=== PATIENT | male | born 1955 | race Caucasian/White ===

== ENCOUNTER 2024-02-19 08:46 | Outpatient (CLI) | payer MEDICARE, BC, SELFPAY | END 2024-02-19 08:47 | disposition home or self-care (01) | LOC: WOUND 08:49 | PROVIDERS: Visit Provider Surgery | DX: S81.811A Laceration without foreign body, right lower leg, initial encounter (principal); S81.801A Unspecified open wound, right lower leg, initial encounter; W19.XXXA Unspecified fall, initial encounter; Y92.015 Private garage of single-family (private) house as the place of occurrence of the external cause; I73.9 Peripheral vascular disease, unspecified; E11.9 Type 2 diabetes mellitus without complications; Z94.4 Liver transplant status; Z79.52 Long term (current) use of systemic steroids; Z79.84 Long term (current) use of oral hypoglycemic drugs | CPT/HCPCS: 97597; G0463 ==

== ENCOUNTER 2024-02-26 09:47 | Outpatient (CLI) | payer MEDICARE, BC, SELFPAY | END 2024-02-26 09:48 | disposition home or self-care (01) | LOC: WOUND 09:47 | PROVIDERS: Visit Provider Surgery | DX: S81.801A Unspecified open wound, right lower leg, initial encounter (principal); E11.9 Type 2 diabetes mellitus without complications; Z94.4 Liver transplant status; Z79.52 Long term (current) use of systemic steroids | CPT/HCPCS: 97597 ==

== ENCOUNTER 2024-03-04 09:41 | Outpatient (CLI) | payer MEDICARE, BC, SELFPAY | END 2024-03-04 09:42 | disposition home or self-care (01) | LOC: WOUND 09:41 | PROVIDERS: Visit Provider Surgery | DX: S81.801A Unspecified open wound, right lower leg, initial encounter (principal); I73.9 Peripheral vascular disease, unspecified; E11.9 Type 2 diabetes mellitus without complications | CPT/HCPCS: 11042 ==

== ENCOUNTER 2024-03-11 09:49 | Outpatient (CLI) | payer MEDICARE, BC, SELFPAY | END 2024-03-11 09:50 | disposition home or self-care (01) | LOC: WOUND 09:49 | PROVIDERS: Visit Provider Nurse Practitioner Family | DX: S81.801A Unspecified open wound, right lower leg, initial encounter (principal); S81.811A Laceration without foreign body, right lower leg, initial encounter; E11.9 Type 2 diabetes mellitus without complications; Z79.84 Long term (current) use of oral hypoglycemic drugs | CPT/HCPCS: 11042; 97597 ==

== ENCOUNTER 2024-03-18 09:38 | Outpatient (CLI) | payer MEDICARE, BC, SELFPAY | END 2024-03-18 09:39 | disposition home or self-care (01) | LOC: WOUND 09:38 | PROVIDERS: Visit Provider Nurse Practitioner Family | DX: I87.2 Venous insufficiency (chronic) (peripheral) (principal); I73.9 Peripheral vascular disease, unspecified; L97.812 Non-pressure chronic ulcer of other part of right lower leg with fat layer exposed; L97.212 Non-pressure chronic ulcer of right calf with fat layer exposed; Z94.4 Liver transplant status; Z79.52 Long term (current) use of systemic steroids | CPT/HCPCS: 11042; 11043; G0463 ==

== ENCOUNTER 2024-03-25 09:44 | Outpatient (CLI) | payer MEDICARE, BC, SELFPAY | END 2024-03-25 09:45 | disposition home or self-care (01) | LOC: WOUND 09:44 | PROVIDERS: Visit Provider Nurse Practitioner Family | DX: I87.2 Venous insufficiency (chronic) (peripheral) (principal); I73.9 Peripheral vascular disease, unspecified; L97.812 Non-pressure chronic ulcer of other part of right lower leg with fat layer exposed; E11.9 Type 2 diabetes mellitus without complications; Z79.84 Long term (current) use of oral hypoglycemic drugs | CPT/HCPCS: 11042 ==

== ENCOUNTER 2024-04-01 09:46 | Outpatient (CLI) | payer MEDICARE, BC, SELFPAY | END 2024-04-01 09:47 | disposition home or self-care (01) | LOC: WOUND 09:47 | PROVIDERS: Visit Provider Nurse Practitioner Family | DX: I87.2 Venous insufficiency (chronic) (peripheral) (principal); I73.9 Peripheral vascular disease, unspecified; L97.812 Non-pressure chronic ulcer of other part of right lower leg with fat layer exposed; E11.9 Type 2 diabetes mellitus without complications; Z79.84 Long term (current) use of oral hypoglycemic drugs | CPT/HCPCS: 11042 ==

== ENCOUNTER 2024-04-15 09:50 | Outpatient (CLI) | payer MEDICARE, BC, SELFPAY | END 2024-04-15 09:51 | disposition home or self-care (01) | LOC: WOUND 09:50 | PROVIDERS: Visit Provider Nurse Practitioner Family | DX: I87.2 Venous insufficiency (chronic) (peripheral) (principal); I73.9 Peripheral vascular disease, unspecified; L97.812 Non-pressure chronic ulcer of other part of right lower leg with fat layer exposed; E11.9 Type 2 diabetes mellitus without complications; Z79.84 Long term (current) use of oral hypoglycemic drugs | CPT/HCPCS: 11042 ==

== ENCOUNTER 2024-04-23 07:52 | Outpatient (CLI) | payer MEDICARE, BC, SELFPAY | END 2024-04-23 07:53 | disposition home or self-care (01) | LOC: WOUND 07:52 | PROVIDERS: Visit Provider Nurse Practitioner Family | DX: I87.2 Venous insufficiency (chronic) (peripheral) (principal); I73.9 Peripheral vascular disease, unspecified; L97.818 Non-pressure chronic ulcer of other part of right lower leg with other specified severity; E11.9 Type 2 diabetes mellitus without complications; Z94.4 Liver transplant status; Z79.52 Long term (current) use of systemic steroids; Z79.84 Long term (current) use of oral hypoglycemic drugs | CPT/HCPCS: G0463 ==

== ENCOUNTER 2024-04-30 10:03 | Outpatient (CLI) | payer MEDICARE, BC, SELFPAY | END 2024-04-30 10:04 | disposition home or self-care (01) | PROVIDERS: Visit Provider Nurse Practitioner Family | DX: I73.9 Peripheral vascular disease, unspecified (principal); I87.2 Venous insufficiency (chronic) (peripheral); E11.9 Type 2 diabetes mellitus without complications; Z94.4 Liver transplant status; Z79.52 Long term (current) use of systemic steroids; Z79.84 Long term (current) use of oral hypoglycemic drugs | CPT/HCPCS: G0463 ==

== ENCOUNTER 2025-01-22 13:22 | Outpatient (CLI) | payer MEDICARE, BC, SELFPAY | END 2025-01-22 13:23 | disposition home or self-care (01) | LOC: WOUND 13:25 | PROVIDERS: Visit Provider Nurse Practitioner Family | DX: E11.622 Type 2 diabetes mellitus with other skin ulcer (principal); I73.9 Peripheral vascular disease, unspecified; L97.811 Non-pressure chronic ulcer of other part of right lower leg limited to breakdown of skin; Z94.4 Liver transplant status; Z79.84 Long term (current) use of oral hypoglycemic drugs | CPT/HCPCS: G0463 ==

== ENCOUNTER 2025-01-29 14:15 | Outpatient (CLI) | payer MEDICARE, BC, SELFPAY | END 2025-01-29 14:16 | disposition home or self-care (01) | LOC: WOUND 14:16 | PROVIDERS: Visit Provider Family Medicine | DX: I73.9 Peripheral vascular disease, unspecified (principal); E11.622 Type 2 diabetes mellitus with other skin ulcer; L97.811 Non-pressure chronic ulcer of other part of right lower leg limited to breakdown of skin; Z94.4 Liver transplant status; Z79.84 Long term (current) use of oral hypoglycemic drugs | CPT/HCPCS: 97597 ==

== ENCOUNTER 2025-02-05 14:25 | Outpatient (CLI) | payer MEDICARE, BC, SELFPAY | END 2025-02-05 14:26 | disposition home or self-care (01) | LOC: WOUND 14:25 | PROVIDERS: Visit Provider Nurse Practitioner Family | DX: I73.9 Peripheral vascular disease, unspecified (principal); E11.622 Type 2 diabetes mellitus with other skin ulcer; L97.811 Non-pressure chronic ulcer of other part of right lower leg limited to breakdown of skin; Z94.4 Liver transplant status; Z79.84 Long term (current) use of oral hypoglycemic drugs | CPT/HCPCS: G0463 ==